=== PATIENT | male | born 1970 | race Caucasian/White ===

== ENCOUNTER 2024-09-26 01:31 | Emergency (ER) | payer BC ==
[~2024-09-26] VITALS: Ht 157.5 cm; Wt 173.6 kg
[2024-09-26] MEDS: LIDOcaine 1% W/epiNEPHrine 1:100,000 20ml vial SQ ONE (01:40)
[2024-09-26] MEDS: silver nitrate applicator stick TP ONE (02:23)
[2024-09-26 04:38] VITALS: BP 127/60; PULSE 87; RESP 18; TEMP 98.2; O2SAT 99
== END 2024-09-26 04:57 | disposition home or self-care (01) ==
LOC: ER 01:34
DX: N50.1 Vascular disorders of male genital organs (principal)
CPT/HCPCS: 99282; J7030